=== PATIENT | female | born 1950 | race Caucasian/White ===

== ENCOUNTER 2024-04-25 07:26 | Emergency (ER) | payer OTHER, MEDICARE ==
[~2024-04-25] VITALS: Ht 147.3 cm; Wt 104.3 kg
[2024-04-25] MEDS ORDERED: Ketorolac Tromethamine 30mg Vial IM ONE (08:15)
[2024-04-25] MEDS ORDERED: Morphine Sulfate 4 MG/1 ML Injection IV ONE (10:10)
[2024-04-25] MEDS ORDERED: FentaNYL Citrate 50 MCG/ML 2 ML Injection IV ONE (10:30)
[2024-04-25] MEDS ORDERED: IBUP600 PO (12:23)
[2024-04-25] MEDS ORDERED: HYDR1TAB94 PO (12:23)
[2024-04-25 12:32] VITALS: BP 138/68
== END 2024-04-25 12:30 | disposition home or self-care (01) ==
LOC: ER 07:26
DX: S43.014A Anterior dislocation of right humerus, initial encounter (principal); S43.034A Inferior dislocation of right humerus, initial encounter; S50.812A Abrasion of left forearm, initial encounter; S00.81XA Abrasion of other part of head, initial encounter; E11.9 Type 2 diabetes mellitus without complications; I10 Essential (primary) hypertension; V89.2XXA Person injured in unspecified motor-vehicle accident, traffic, initial encounter; Z88.8 Allergy status to other drugs, medicaments and biological substances
CPT/HCPCS: 70450; 71045; 72125; 73020; 73030; 73562-LT; J1885; J3010

== ENCOUNTER 2024-10-23 08:46 | Day surgery (SDC) | payer MEDICARE ==
[~2024-10-23] VITALS: Ht 147.3 cm; Wt 105.4 kg
[~2024-10-23 08:46] MED LIST: HYDR1TAB94 PO; IBUP600 PO
[2024-10-23] MEDS ORDERED: CARVEDILOL6.25 MG PO (09:49)
[2024-10-23] MEDS ORDERED: FUROSEMIDE20 MG PO (09:49)
[2024-10-23] MEDS ORDERED: AMLODIPINE BESYL5 MG PO (09:50)
[2024-10-23] MEDS ORDERED: ASPIR 8181 M1 PO (09:51)
[2024-10-23] MEDS ORDERED: OZEMPIC1 MG/0.72 SC (09:51)
[2024-10-23] MEDS ORDERED: NEURONTIN40010 PO (09:52)
[2024-10-23] MEDS ORDERED: GLIMEPIRIDE4 MG PO (09:52)
[2024-10-23] MEDS ORDERED: BENFOTIAMINE150 MG (10:22)
[2024-10-23] MEDS ORDERED: ALBU90OI (10:22)
[2024-10-23] MEDS ORDERED: TRESIBA FL100 UNIT/2 (10:23)
[2024-10-23] MEDS ORDERED: BUPR150ER (10:23)
[2024-10-23] MEDS ORDERED: REPATHA SU140 MG/1 M (10:23)
[2024-10-23] MEDS ORDERED: CRANBERRY215 MG (10:23)
[2024-10-23] MEDS ORDERED: EUTHYROX125 MCG (10:24)
[2024-10-23] MEDS ORDERED: JARDIANCE10 MG (10:24)
[2024-10-23] MEDS ORDERED: MSM1000 M3 (10:24)
[2024-10-23] MEDS ORDERED: MAGNESIUM OXID500 MG (10:24)
[2024-10-23] MEDS ORDERED: RAMI5 (10:25)
[2024-10-23 11:51] VITALS: BP 124/62
== END 2024-10-23 11:58 | disposition home or self-care (01) ==
LOC: ORSCSDS 08:46
PROVIDERS: Surgery
PROC: 0DBP8ZX Excision of Rectum, Via Natural or Artificial Opening Endoscopic, Diagnostic (ICD-10-PCS; principal; 2024-10-23 10:15)
PROC: 0DBH8ZX Excision of Cecum, Via Natural or Artificial Opening Endoscopic, Diagnostic (ICD-10-PCS; principal; 2024-10-23 10:15)
PROC: 0DBM8ZX Excision of Descending Colon, Via Natural or Artificial Opening Endoscopic, Diagnostic (ICD-10-PCS; principal; 2024-10-23 10:15)
DX: Z12.11 Encounter for screening for malignant neoplasm of colon (principal); Z86.0100 Personal history of colon polyps, unspecified; K51.40 Inflammatory polyps of colon without complications; D12.4 Benign neoplasm of descending colon; D12.8 Benign neoplasm of rectum; Z80.0 Family history of malignant neoplasm of digestive organs; I12.9 Hypertensive chronic kidney disease with stage 1 through stage 4 chronic kidney disease, or unspecified chronic kidney disease; E11.22 Type 2 diabetes mellitus with diabetic chronic kidney disease; N18.4 Chronic kidney disease, stage 4 (severe); F32.A Depression, unspecified; E78.5 Hyperlipidemia, unspecified; E03.9 Hypothyroidism, unspecified; G47.33 Obstructive sleep apnea (adult) (pediatric); E66.9 Obesity, unspecified; Z68.42 Body mass index [BMI] 45.0-49.9, adult; Z79.85 Long-term (current) use of injectable non-insulin antidiabetic drugs; Z79.899 Other long term (current) drug therapy
CPT/HCPCS: 82947; 88305; J2704; J7120

== ENCOUNTER 2025-01-20 08:30 | Day surgery (SDC) | payer MEDICARE ==
[~2025-01-20] VITALS: Ht 147.3 cm; Wt 106.3 kg
[~2025-01-20 08:30] MED LIST changes: +ALBU90OI; +AMLODIPINE BESYL5 MG PO; +ASPIR 8181 M1 PO; +BENFOTIAMINE150 MG; +BUPR150ER; +Balanced Salt Epinephrine Irrigation Solution 500 mL IR SCH; +CARVEDILOL6.25 MG PO; +CRANBERRY215 MG; +EUTHYROX125 MCG; +FUROSEMIDE20 MG PO; +GLIMEPIRIDE4 MG PO; +JARDIANCE10 MG; +MAGNESIUM OXID500 MG; +MSM1000 M3; +Moxifloxacin HCL 0.5 MG/0.1 ML 0.4MLSYR LEFTEYE SCH; +NEURONTIN40010 PO; +NS 500 ML IV ONE; +OZEMPIC1 MG/0.72 SC; +PHENYLEPHRINE\\TROPICAMIDE\\TETRACAINE OPHTHALMIC DILATING SOLN LEFTEYE PRN; +Povidone-Iodine 450 DROP/30 ML Solution LEFTEYE SCH; +Povidone-Iodine 450 DROP/30 ML Solution ONE; +RAMI5; +REPATHA SU140 MG/1 M; +TRESIBA FL100 UNIT/2; +Tetracaine HCl/Pf 0.5% Opth Soln 4 ml ONE
[2025-01-20] MEDS ORDERED: NS 500 ML IV ONE (09:26)
[2025-01-20] MEDS ORDERED: Midazolam HCl 1MG / ML 2ML Vial ONE (10:04)
[2025-01-20 10:47] VITALS: BP 136/67
--- NOTE | 2025-01-20 10:52 | NUR ---
01/20/25 1052 Myrna Box PT. VERBALIZES OS FEELS ITCHY. AWARE & INSTRUCTED PT. EYE MIGHT FEEL ITCHY OR SOME DISCOMFORT. PT. CAN TAKE OTC PAIN MED IF NEEDED & SUGGESTED ARTIFICIAL TEARS IF NEEDED.
== END 2025-01-20 10:42 | disposition home or self-care (01) ==
LOC: ORSCSDS 08:30
PROVIDERS: Student in an Organized Health Care Education/Training Program
PROC: 08RK3JZ Replacement of Left Lens with Synthetic Substitute, Percutaneous Approach (ICD-10-PCS; principal; 2025-01-20 10:00)
DX: E11.36 Type 2 diabetes mellitus with diabetic cataract (principal); H25.813 Combined forms of age-related cataract, bilateral; E11.22 Type 2 diabetes mellitus with diabetic chronic kidney disease; I12.9 Hypertensive chronic kidney disease with stage 1 through stage 4 chronic kidney disease, or unspecified chronic kidney disease; N18.4 Chronic kidney disease, stage 4 (severe); E78.5 Hyperlipidemia, unspecified; E03.9 Hypothyroidism, unspecified; G47.33 Obstructive sleep apnea (adult) (pediatric); F32.A Depression, unspecified; I25.10 Atherosclerotic heart disease of native coronary artery without angina pectoris; E66.9 Obesity, unspecified; Z68.42 Body mass index [BMI] 45.0-49.9, adult; Z79.82 Long term (current) use of aspirin; Z79.4 Long term (current) use of insulin; Z79.84 Long term (current) use of oral hypoglycemic drugs; Z79.85 Long-term (current) use of injectable non-insulin antidiabetic drugs; Z79.899 Other long term (current) drug therapy
CPT/HCPCS: 82947; J2250; J7040; V2632

== ENCOUNTER 2025-01-27 06:25 | Day surgery (SDC) | payer MEDICARE ==
[~2025-01-27] VITALS: Ht 149.9 cm; Wt 107.3 kg
[~2025-01-27 06:25] MED LIST changes: -Moxifloxacin HCL 0.5 MG/0.1 ML 0.4MLSYR LEFTEYE SCH; +Moxifloxacin HCL 0.5 MG/0.1 ML 0.4MLSYR RIGHTEYE SCH; +Ondansetron 4 MG SoluTab MM PRN; -PHENYLEPHRINE\\TROPICAMIDE\\TETRACAINE OPHTHALMIC DILATING SOLN LEFTEYE PRN; +PHENYLEPHRINE\\TROPICAMIDE\\TETRACAINE OPHTHALMIC DILATING SOLN RIGHTEYE PRN; -Povidone-Iodine 450 DROP/30 ML Solution LEFTEYE SCH; +Povidone-Iodine 450 DROP/30 ML Solution RIGHTEYE SCH; +diazePAM 5 MG,diazePAM 2 MG PO SCH
[2025-01-27] MEDS ORDERED: NS 500 ML IV ONE (07:16)
[2025-01-27] MEDS ORDERED: Midazolam HCl 1MG / ML 2ML Vial ONE (07:58)
[2025-01-27] MEDS ORDERED: Tetracaine HCl 0.5% Opth Soln 15 ml RIGHTEYE ONE (08:04)
--- NOTE | 2025-01-27 08:42 | NUR ---
01/27/25 0842 Dionisio Wilburn PT INSTRUCTED TO MONITOR B/P AT HOME AND FOLLOW UP WITH PCP IF NEEEDED.
[2025-01-27 08:43] VITALS: BP 128/64
== END 2025-01-27 08:35 | disposition home or self-care (01) ==
LOC: ORSCSDS 06:25
PROVIDERS: Student in an Organized Health Care Education/Training Program
PROC: 08RJ3JZ Replacement of Right Lens with Synthetic Substitute, Percutaneous Approach (ICD-10-PCS; principal; 2025-01-27 08:00)
DX: E11.36 Type 2 diabetes mellitus with diabetic cataract (principal); H25.811 Combined forms of age-related cataract, right eye; Z96.1 Presence of intraocular lens; E11.22 Type 2 diabetes mellitus with diabetic chronic kidney disease; I12.9 Hypertensive chronic kidney disease with stage 1 through stage 4 chronic kidney disease, or unspecified chronic kidney disease; N18.4 Chronic kidney disease, stage 4 (severe); F32.A Depression, unspecified; E78.5 Hyperlipidemia, unspecified; E03.9 Hypothyroidism, unspecified; G47.33 Obstructive sleep apnea (adult) (pediatric); E66.01 Morbid (severe) obesity due to excess calories; Z68.42 Body mass index [BMI] 45.0-49.9, adult; Z79.82 Long term (current) use of aspirin; Z79.4 Long term (current) use of insulin; Z79.84 Long term (current) use of oral hypoglycemic drugs; Z79.85 Long-term (current) use of injectable non-insulin antidiabetic drugs; Z79.899 Other long term (current) drug therapy
CPT/HCPCS: 82947; J2250; J7040; V2632